=== PATIENT | female | born 1985 | race Asian ===

== ENCOUNTER → 2020-05-17 | Outpatient (CLI) | payer BC | LOC: COL.CARD 09:45 | DX: G43.909 Migraine, unspecified, not intractable, without status migrainosus (principal); G40.909 Epilepsy, unspecified, not intractable, without status epilepticus ==

== ENCOUNTER 2021-05-12 12:20 | Outpatient (CLI) | payer BC ==
[~2021-05-12] VITALS: Ht 172.7 cm; Wt 80.5 kg
--- NOTE | 2021-05-12 12:25 | NUR ---
Pt arrives on unit via wheelchair with this RN. Pt states falling up one stair at 1130 with arms extended and falling to abdomen. Since fall, left lower abdominal cramps are constant. Denies LOF, vaginal bleeding but reports a decrease of normal movement. Abrasions noted to right third through fifth MCP joint. Pt recieves care in [place]. Requests for records sent. Dr. Nair notified. VSS. Cat 1 FHR strip. Ctx q 2-3 minutes but patient does not report pain. Orders for IVF and to monitor x 2 hours.
[2021-05-12] MEDS ORDERED: PRENATAL MVI (12:35)
[2021-05-12 12:45] VITALS: BP 128/72; PULSE 86; TEMP 98.2
--- NOTE | 2021-05-12 12:56 | NUR ---
Repositioned to right lateral.
[2021-05-12 13:00] VITALS: BP 129/78; PULSE 77
[2021-05-12 13:30] VITALS: BP 131/73; PULSE 77
[2021-05-12 14:00] VITALS: BP 127/77; PULSE 81
--- NOTE | 2021-05-12 14:45 | NUR ---
Discharged to home per physician's okay. Ambulatory off unit, accompanied by spouse. Denies any questions or concerns. States she no longer experiences cramping.
== END 2021-05-12 14:45 | disposition home or self-care (01) ==
LOC: LDRO 12:20 → LDR 12:31 → LDRO 14:45
DX: O26.893 Other specified pregnancy related conditions, third trimester (principal); R25.2 Cramp and spasm; O9A.213 Injury, poisoning and certain other consequences of external causes complicating pregnancy, third trimester; Z3A.32 32 weeks gestation of pregnancy; W10.9XXA Fall (on) (from) unspecified stairs and steps, initial encounter
CPT/HCPCS: OP; J7120